=== PATIENT | male | born 1960 | race Caucasian/White ===

== ENCOUNTER → 2016-06-10 | Outpatient (CLI) | payer BC | END | disposition home or self-care (01) | LOC: C.PATH 13:52 | PROVIDERS: ATTEND Dermatology | DX: D23.22 Other benign neoplasm of skin of left ear and external auricular canal (principal); L82.1 Other seborrheic keratosis ==

== ENCOUNTER → 2017-06-19 | Outpatient (CLI) | payer BC ==
[2017-06-19 10:49] LABS: BASO % 0.7 %; BASO ABS # 0.04 K/uL (0-0.2); EOS % 2.8 %; EOS ABS # 0.16 K/uL (0-0.5); HEMATOCRIT 44.7 % (42-52); HEMOGLOBIN 15.7 g/dL (14.0-18.0); IG# 0.03 K/uL (0.00-0.02); LYMPH % 32.7 %; LYMPH ABS # 1.84 K/uL (1.2-3.4); MEAN CELL VOLUME 90.9 fL (80-100); MEAN CORPUSCULAR HEMOGLOBIN 31.9 pg (25-34); MEAN CORPUSCULAR HGB CONC 35.1 g/dl (32-36); MEAN PLATELET VOLUME 10.1 fL (7.4-10.4); MONO % 9.6 %; MONO ABS # 0.54 K/uL (0.11-0.59); NEUT % 53.7 %; NEUT ABS # 3.01 K/uL (1.4-6.5); PLATELET COUNT 211 K/uL (130-400); RED CELL DISTRIBUTION WIDTH CV 12.8 % (11.5-14.5); RED CELL DISTRIBUTION WIDTH SD 42.5 fL (36.4-46.3); WHITE BLOOD COUNT 5.62 K/uL (4.8-10.8)
[2017-06-19 11:18] LABS: ALBUMIN 4.2 gm/dl (3.4-5.0); ALT/SGPT 43 U/L (12-78); AST/SGOT 24 U/L (15-37); BLOOD UREA NITROGEN 23 mg/dl (7-18); CARBON DIOXIDE 25 mmol/L (21-32); GLUCOSE 95 mg/dl (70-99); SODIUM 140 mmol/L (136-145)
[2017-06-19 11:28] LABS: ALKALINE PHOSPHATASE 81 U/L (45-117); CHOLESTEROL 201 mg/dl (0-200); LDL CHOLESTEROL CALCULATED 129 mg/dl; TOTAL PROTEIN 7.9 gm/dl (6.4-8.2)
== END | disposition home or self-care (01) ==
LOC: C.LAB1850 08:33
PROVIDERS: ATTEND Family Medicine
DX: E78.5 Hyperlipidemia, unspecified (principal); M54.5 Low back pain; Z12.5 Encounter for screening for malignant neoplasm of prostate

== ENCOUNTER → 2017-07-27 | Outpatient (CLI) | payer BC ==
--- NOTE | 2017-07-27 12:45 | DIAGNOSTIC IMAGING REPORT ---
ULTRASOUND RIGHT GROIN NONVASCULAR CLINICAL HISTORY: Right groin pain. Lifting injury. COMPARISON STUDY: No priors. FINDINGS: Real-time grayscale sonography of the right groin is performed to assess for inguinal hernia. There is a small and partially reducible fat-containing right inguinal hernia identified. The hernia orifice measures up to 1.7 cm. There is no evidence of bowel or fluid within the hernia sac. No right inguinal adenopathy is seen. IMPRESSION: There is a small and partially visible fat-containing right inguinal hernia. Electronically signed by: Santiago Bustamante M.D. 07/27/2017 12:44 PM Dictated Date/Time: 07/27/2017 12:43 PM
== END | disposition home or self-care (01) ==
LOC: C.ULTR 12:09
PROVIDERS: ATTEND Physician Assistant
DX: K40.90 Unilateral inguinal hernia, without obstruction or gangrene, not specified as recurrent (principal)

== ENCOUNTER 2020-02-29 08:00 | Observation (INO) ==
--- NOTE | 2020-02-06 15:17 | Anesthesiology Consultation ---
Date of Service February 06, 2020 Assessment & Plan (1) Encounter for pre-operative examination: Chart Review Chart Review: Acceptable Risk for Surgery (pending surgeon ordered PCP clearance ) and Patient seen in Pre Admission Testing Awaiting surgeon ordered PCP clearance (pt scheduling) Per PAT on 02/05/20, pt denies any recent travel. Pt and pt's tested Covid tested 12/30/19. Did not get retested. No known Covid positive contacts or Covid related symptoms. 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 Scheduled for preop testing 02/19/20. Educated on importance of self quarantining, social distancing and wearing mask in public both for the patient and household contacts. Teaching & Discussion Pre-Anesthesia Teaching/Discussion Notes: Instructed NPO after midnight before surgery,except medications with 15 cc of water. Medication instructions provided according to the PAT guidelines. History Surgery Operation Date: 02/29/20 11:05 Proposed Procedures p Right Total Hip Arthroplasty - Tamir Hartmann MD Height/Weight Height: 6 ft Weight: 91.9 kg Allergies Allergy/AdvReac Type Severity Reaction Status Date / Time No Known Drug Allergies Allergy Unknown Verified 02/05/20 11:50 Medications Home Medications Medication Instructions Recorded Confirmed Last Taken naproxen sodium [Aleve] 220 mg PO BID PRN 04/08/18 02/05/20 04/16/18 08:00 acetaminophen 650 mg 650 mg PO Q12H PRN 11/02/18 02/05/20 Unknown tablet,extended release multivitamin 1 tab PO QAM 12/19/19 02/05/20 Unknown Past Medical History Medical History Herniated disc History of at L3-L4 = s/p surgery Osteoarthritis Exercise / Class Metabolic Activity II 4-5 Yardwork/Stairs/Walk up hill (ONE FLIGHT OF STAIRS - NO CHEST PAIN OR SOB ) Past Family History Family History Father Family history of diabetes mellitus Dyslipidemia Coronary heart disease Hypertension Pacemaker Past Surgical History Surgical History History of arthroscopy LEFT KNEE (HARDWARE INTACT)-ACL RECONSTRUCTION History of colonoscopy History of discectomy LUMBAR History of herniorrhaphy INGUINAL Past Anesthesia History No Hx of Anesthesia Complications (with exception to slow to wake- just groggy- no hx of reintubation or ICU stay ) and No Family Hx of Anesthesia Complications History of PONV No Hx of PONV and No Hx of Motion Sickness Social History Smoking Status: Never smoker Hx Alcohol Use: Yes Alcohol type: beer alcohol intake frequency: a few times a month Hx Substance Use: No substance use type: does not use Review of Systems Occ snoring- no witnessed apnea. No hx of sleep study Patient denies chest pain, shortness of breath, dyspnea on exertion, reflux, cough, wheezing, palpitations. No hx of seizures, stroke, [place]. No hx of blood clots or blood transfusions Physical Exam Vital Signs VITALS BP 136/87 P 65 TEMP 98.4 SP02 97% RESP 16 Constitutional no acute distress ENMT Mouth: no TMJ clicking Thyromental Distance: > or= 3.5 Finger Breadths (3.5) Mallampati Class: III Mouth / Teeth: 1. Chippped Neck neck extension not limited Respiratory normal respiratory effort; no respiratory distress Auscultation: lungs clear to auscultation bilaterally; no wheezes Cardiovascular Rate/Rhythm: regular rate and regular rhythm Heart Sounds: no murmur Vessels: no carotid bruit Musculoskeletal Spine: + pain with cervical ROM (mild ) Extremities: extremities normal to inspection Psychiatric Orientation: alert Testing Laboratory Results 02/06/20 15:44 02/06/20 15:41 PT 10.5 Seconds (9.0-12.0) 02/06/20 15:44 INR 1.0 (0.9-1.1) 02/06/20 15:44 APTT 29.9 Seconds (21.0-31.0) 02/06/20 15:44 Hemoglobin A1c 5.6 % (4.5-5.6) 02/06/20 15:44 Urine Color Yellow 02/06/20 15:44 Urine Appearance Clear (Clear) 02/06/20 15:44 Urine pH 5.0 (4.5-7.5) 02/06/20 15:44 Ur Specific [place] 1.017 (1.000-1.030) 02/06/20 15:44 Urine Protein Negative (Negative) 02/06/20 15:44 Urine Glucose (UA) Negative (Negative) 02/06/20 15:44 Urine Ketones Negative (Negative) 02/06/20 15:44 Urine Nitrite Negative (Negative) 02/06/20 15:44 Ur Leukocyte Esterase Negative (Negative) 02/06/20 15:44 Blood Type A Positive 02/06/20 15:44 Antibody Screen NEGATIVE 02/06/20 15:44 02/06/20 15:44 Urine Culture - Preliminary Urine,Clean Catch No growth - Less than 1,000 colonies/mL, Final report to follow. Electrocardiogram Date: 02/06/20 Findings: + NSR @ (60) Normal EKG. Compared to EKG from September 28, 2017, nonspecific T wave abnormality has replaced inverted T waves in inferior leads per cardio. Chest X-Ray Date: 02/06/20 Findings: + NAD
--- NOTE | 2020-02-06 16:02 | XRay Report ---
XR chest 2V PA/lateral HISTORY: 59 years-old Male Preop preoperative exam. No acute chest complaints COMPARISON: None TECHNIQUE: PA and lateral views of the chest FINDINGS: Cardiomediastinal and hilar silhouettes are within normal limits. No pneumothorax, pleural effusion, airspace consolidation or overt pulmonary edema. Bones of the chest appear grossly intact. IMPRESSION: No acute process. ACT 112: Negative or not required by law. The above report was generated using voice recognition software. It may contain grammatical, syntax o r spelling errors. Electronically signed by: Solitario Hernandez M.D. 02/06/2020 4:00 PM
[2020-02-06 16:34] LABS: Basophils # (auto) 0.02 K/uL (0-0.2); Basophils % (auto) 0.3 %; Eosinophils # (auto) 0.12 K/uL (0-0.5); Eosinophils % (auto) 1.9 %; Hematocrit (blood only) 43.1 % (42-52); Hemoglobin 14.4 g/dL (14.0-18.0); Immature Granulocytes # (auto) 0.03 K/uL (0.00-0.02); Immature Granulocytes % (auto) 0.5 %; Lymphocytes # (auto) 1.92 K/uL (1.2-3.4); Mean Corpuscular Hemoglobin 31.5 pg (25-34); Mean Corpuscular Hgb Conc 33.4 g/dL (32-36); Mean Corpuscular Volume 94.3 fL (80-100); Mean Platelet Volume 10.3 fL (7.4-10.4); Monocytes % (auto) 6.5 %; Neutrophils # (auto) 3.71 K/uL (1.4-6.5); Neutrophils % (auto) 59.8 %; Platelet Count 233 K/uL (130-400); RDW Coefficient of Variation 12.7 % (11.5-14.5); RDW Standard Deviation 43.4 fL (36.4-46.3); Red Blood Count 4.57 M/uL (4.7-6.1)
[2020-02-06 16:39] LABS: Appearance Urine Clear (Clear); Bilirubin Urine Negative (Negative); Blood Urine Negative (Negative); Color Urine Yellow; Glucose Urine UA Negative (Negative); Ketones Urine Negative (Negative); Leukocyte Esterase Urine Negative (Negative); Nitrite Urine Negative (Negative); Protein Urine Negative (Negative); Specific Gravity Urine 1.017 (1.000-1.030); Urobilinogen Urine Negative (Negative)
[2020-02-06 16:44] LABS: BUN Creatinine Ratio 15.3 (10-20); Calcium 9.1 mg/dl (8.5-10.1); Creatinine Clr Calc Pharmacy 82.1 ml/min; Est GFR (African American) 86.9; Est GFR (Non-African American) 74.9; Potassium 4.3 mmol/L (3.5-5.1)
[2020-02-06 16:50] LABS: Partial Thromboplastin Ratio 1.1; Partial Thromboplastin Time 29.9 Seconds (21.0-31.0); Prothrombin Time 10.5 Seconds (9.0-12.0)
[2020-02-07 05:49] LABS: Estimated Average Glucose 114 mg/dl; Hemoglobin A1C 5.6 % (4.5-5.6)
--- NOTE | 2020-02-07 08:45 | History & Physical Report ---
Date of Service February 07, 2020 Assessment & Plan Admission and Anticipated Discharge Date Admission Date: PRE-OP Diagnosis: Right hip osteoarthritis Planned Procedure: Right total hip arthroplasty Plan: Patient is scheduled to undergo this procedure with Dr. Tamir Hartmann at the [facility] on February 29, 2020. Risks and complications of the procedure such as: Infection, bleeding, pain, scarring, nerve blood vessel damage, weakness, wound problems, stiffness, incomplete relief of symptoms, hardware failure, hardware loosening, wear, fracture, tendon or ligament injury, dislocation, leg length inequality, blood clots, embolism, hea rt attack, stroke and were explained to the patient at his visit today by Dr. Hartmann. Informed consent form the procedure was obtained. Patient also understands risks of proceeding with surgical intervention during the COVID-19 pandemic. Currently he is asymptomatic and will be tested no more than 7 days prior to the procedure. I discussed the abscessed area with Dr. Hartmann during today's visit and he recommended that we place the patient on Bactrim for 14 days, and feel that he should see Dr. Sidhu his spine surgeon as well as his primary care provider Dr. Salvador for preoperative medical clearance. Clearance forms will be sent to each of their offices, and patient will contact both of them to set up an appointment. Patient is scheduled to meet with anesthesia later this afternoon, and while there he will obtain a CBC with differential, complete metabolic panel, PT/INR, blood type and screen, urinalysis, urine culture and sensitivity, EKG, hemoglobin A1c and a nasal culture for MRSA. During today's visit we discussed total hip precautions, we reviewed the total hip packet, we talked about antibiotic use for dental procedures following joint replacement surgery, reviewed discharge planning and we talked about lectures offered by [facility] in regards to joint replacement surgery that are offered via Zoom. I also instructed patient to purchase some raised toilet seats, a hip kit and a walker. Patient states that his friend recently underwent total joint surgery and is going to provide him with all of these things. He states that he will bring the walker with him on the day of surgery. I advised the patient that he will be discharged from the hospital with a prescription for some pain medication, and anti-inflammatory, and that I would like him to purchase extra strength Tylenol and baby aspirin to use for pain control and DVT prophylaxis respectively. He states that he will most likely opt to do in-home therapy for the first 2 weeks postoperatively, and at the 2-week postoperative follow-up visit we will provide him with an order to obtain outpatient physical therapy. Patient states he would like to come to our clinic for that. Due to the abscessed area on his spine I would like to see the patient back 1 week prior to surgery. I advised him that his 2-week postoperative follow-up visit was also with myself on March 15 at 1:30 in the afternoon. Patient verbalized understanding of all information provided during today's visit. He thanked us for the care that he received. Patient states if he has questions or concerns that should arise prior to his surgery, he will contact clinic. History of Present Illness Chief Complaint: Chief Complaint: Right hip pain Primary Care Provider: Dusty Salvador MD History of Present Illness (including history relevant to procedure): This 59-year-old male presents the clinic today for his preoperative history and physical examination. The patient has had issues with his right leg for over 3 years. He underwent back surgery 3 years ago, which helped with some of the excruciating pains he had radiating down his leg. He has been left with some numbness in the anterolateral aspect of the lower leg. However, he has always had some pain in the groin which has progressively worsened over the last 3 years. This affects his ability to lift heavy objects, walk and even kayak. He has tried various treatments including a 1-week course of steroids orally as well as Aleve and Tylenol. Unfortunately, these have failed to relieve his symptoms. He has not had any injections into the hip joint. He says nothing really makes it any better. He denies any current tingling down the leg and does not have any numbness by his groin, only in the lower leg. Past Medical History: Problems: Abscess of back Chronic numbness in the right anterior lower leg since having back surgery Right hip degenerative joint disease Procedure History Procedure Procedure Date Comments L4/5 discectomy Left ACL and MCL reconstruction Left inguinal hernia repair Allergies and Sensitivities: NKA Social history: Patient states that he consumes approximately 2 alcoholic beverages per week. He denies tobacco or illicit drug use. Family history: Noncontributory Current Home Meds: (Last Updated 11/10 14:49) (Tylenol) glucosamine multivitamintrimethoprim (Bactrim DS 800 mg-160 mg oral tablet) 1 tab PO bid drink plenty of fluids Allergies Allergy/AdvReac Type Severity Reaction Status Date / Time No Known Drug Allergies Allergy Unknown Verified 02/05/20 11:50 Home Medications Home Medications Medication Instructions Recorded Confirmed Type naproxen sodium [Aleve] 220 mg PO BID PRN 04/08/18 02/05/20 History acetaminophen 650 mg 650 mg PO Q12H PRN 11/02/18 02/05/20 History tablet,extended release multivitamin 1 tab PO QAM 12/19/19 02/05/20 History Past Med/Surg History Medical History Herniated disc History of at L3-L4 = s/p surgery Osteoarthritis Surgical History History of arthroscopy LEFT KNEE (HARDWARE INTACT)-ACL RECONSTRUCTION History of colonoscopy History of discectomy LUMBAR History of herniorrhaphy INGUINAL Family History Father Family history of diabetes mellitus Dyslipidemia Coronary heart disease Hypertension Pacemaker Social History Smoking Status: Never smoker Second Hand Exposure: No; Tobacco Cessation Education Requested by Patient: No Hx Alcohol Use: Yes Alcohol type: beer Hx Substance Use: No Preferred Language: Malawian Communication Ability: Effective Paper Bag Inspector Required: No Beliefs That Will Affect Care: None marital status: Current Living Situation: Spouse current occupational status: employed Feels Safe at Home: Yes Safety Concerns: Feels Safe At This Time Physical Activity Frequency: Daily Seatbelt Use: always Assistive Devices: None Review of Systems All systems reviewed & are unremarkable except as noted in HPI & below Musculoskeletal: severe right hip pain with limited range of motion and difficulty ambulating Immunologic Skin: Open lesion in lumbar spine area in the center of his previous surgical scar from a discectomy Neurologic Physical Exam Physical Exam: Physical Exam: (relevant to the procedure, including heart and lung evaluation) General: Alert and oriented x3 with proper grooming and hygiene Eyes: Pupils are equal and react to light with accommodation. Extraocular movements are intact Throat: Deferred due to COVID-19 precautions Cardiac: Regular rate and rhythm with no murmurs or gallops appreciated Lungs: Clear to auscultation throughout with no wheezing, rales or rhonchi Abdomen: Mildly obese, nondistended, nontender with normal active bowel sounds Back: See skin Extremities: Right hip exam reveals the patient to have a positive Stinchfield test. He has severely limited range of motion with flexion up to 85 degrees, external rotation of 30 degrees, and internal rotation of 5 degrees. Positive impingement-scour tests. Positive CHOCO test. Distally neurovascularly intact including palpable dorsalis pedis and posterior tibial pulses. Neuro: Cranial nerves II through XII are intact with no motor or sensory deficit Skin: Patient has a tiny opening in the central portion of the scar in his lumbar spine with some mild surrounding erythema. Upon compression of the area a thick yellowish substance was expressed. Site was then cleansed with Betadine swabs, and alcohol soaked 4 x 4 and covered with some Band-Aids. Otherwise the skin was normal in appearance. Results & Data ([facility]) Laboratory Results 02/06/20 02/06/20 02/06/20 Range/Units 15:44 15:44 15:44 WBC (4.8-10.8) K/uL RBC (4.7-6.1) M/uL Hgb (14.0-18.0) g/dL Hct (42-52) % MCV (80-100) fL MCH (25-34) pg MCHC (32-36) g/dL RDW Std Deviation (36.4-46.3) fL RDW Coeff of Ronna (11.5-14.5) % Plt Count (130-400) K/uL MPV (7.4-10.4) fL Immature Gran % (Auto) % Neut % (Auto) % Lymph % (Auto) % [place] % (Auto) % Eos % (Auto) % Baso % (Auto) % Neut # (Auto) (1.4-6.5) K/uL Lymph # (Auto) (1.2-3.4) K/uL [place] # (Auto) (0.11-0.59) K/uL Eos # (Auto) (0-0.5) K/uL Baso # (Auto) (0-0.2) K/uL Immature Gran # (Auto) (0.00-0.02) K/uL PT (9.0-12.0) Seconds INR (0.9-1.1) APTT (21.0-31.0) Seconds PTT Ratio Sodium (136-145) mmol/L Potassium (3.5-5.1) mmol/L Chloride (98-107) mmol/L Carbon Dioxide (21-32) mmol/L Anion Gap (3-11) BUN (7-18) mg/dl Creatinine (0.6-1.4) mg/dl Est Cr Clr Drug Dosing ml/min Est GFR ( Amer) Est GFR (Non-Af Amer) BUN/Creatinine Ratio (10-20) Glucose (70-99) mg/dl Estimat Average Glucose 114 mg/dl Hemoglobin A1c 5.6 (4.5-5.6) % Calcium (8.5-10.1) mg/dl Urine Color Yellow Urine Appearance Clear (Clear) Urine pH 5.0 (4.5-7.5) Ur Specific [place] 1.017 (1.000-1.030) Urine Protein Negative (Negative) Urine Glucose (UA) Negative (Negative) Urine Ketones Negative (Negative) Urine Blood Negative (Negative) Urine Nitrite Negative (Negative) Urine Bilirubin Negative (Negative) Urine Urobilinogen Negative (Negative) Ur Leukocyte Esterase Negative (Negative) Nasal Screen MRSA (PCR) Negative (Negative) Blood Type Antibody Screen 02/06/20 02/06/20 02/06/20 Range/Units 15:44 15:44 15:44 WBC 6.20 (4.8-10.8) K/uL RBC 4.57 L (4.7-6.1) M/uL Hgb 14.4 (14.0-18.0) g/dL Hct 43.1 (42-52) % MCV 94.3 (80-100) fL MCH 31.5 (25-34) pg MCHC 33.4 (32-36) g/dL RDW Std Deviation 43.4 (36.4-46.3) fL RDW Coeff of Ronna 12.7 (11.5-14.5) % Plt Count 233 (130-400) K/uL MPV 10.3 (7.4-10.4) fL Immature Gran % (Auto) 0.5 % Neut % (Auto) 59.8 % Lymph % (Auto) 31.0 % [place] % (Auto) 6.5 % Eos % (Auto) 1.9 % Baso % (Auto) 0.3 % Neut # (Auto) 3.71 (1.4-6.5) K/uL Lymph # (Auto) 1.92 (1.2-3.4) K/uL [place] # (Auto) 0.40 (0.11-0.59) K/uL Eos # (Auto) 0.12 (0-0.5) K/uL Baso # (Auto) 0.02 (0-0.2) K/uL Immature Gran # (Auto) 0.03 H (0.00-0.02) K/uL PT 10.5 (9.0-12.0) Seconds INR 1.0 (0.9-1.1) APTT 29.9 (21.0-31.0) Seconds PTT Ratio 1.1 Sodium (136-145) mmol/L Potassium (3.5-5.1) mmol/L Chloride (98-107) mmol/L Carbon Dioxide (21-32) mmol/L Anion Gap (3-11) BUN (7-18) mg/dl Creatinine (0.6-1.4) mg/dl Est Cr Clr Drug Dosing ml/min Est GFR ( Amer) Est GFR (Non-Af Amer) BUN/Creatinine Ratio (10-20) Glucose (70-99) mg/dl Estimat Average Glucose mg/dl Hemoglobin A1c (4.5-5.6) % Calcium (8.5-10.1) mg/dl Urine Color Urine Appearance (Clear) Urine pH (4.5-7.5) Ur Specific [place] (1.000-1.030) Urine Protein (Negative) Urine Glucose (UA) (Negative) Urine Ketones (Negative) Urine Blood (Negative) Urine Nitrite (Negative) Urine Bilirubin (Negative) Urine Urobilinogen (Negative) Ur Leukocyte Esterase (Negative) Nasal Screen MRSA (PCR) (Negative) Blood Type A Positive Antibody Screen NEGATIVE 02/06/20 Range/Units 15:41 WBC (4.8-10.8) K/uL RBC (4.7-6.1) M/uL Hgb (14.0-18.0) g/dL Hct (42-52) % MCV (80-100) fL MCH (25-34) pg MCHC (32-36) g/dL RDW Std Deviation (36.4-46.3) fL RDW Coeff of Ronna (11.5-14.5) % Plt Count (130-400) K/uL MPV (7.4-10.4) fL Immature Gran % (Auto) % Neut % (Auto) % Lymph % (Auto) % [place] % (Auto) % Eos % (Auto) % Baso % (Auto) % Neut # (Auto) (1.4-6.5) K/uL Lymph # (Auto) (1.2-3.4) K/uL [place] # (Auto) (0.11-0.59) K/uL Eos # (Auto) (0-0.5) K/uL Baso # (Auto) (0-0.2) K/uL Immature Gran # (Auto) (0.00-0.02) K/uL PT (9.0-12.0) Seconds INR (0.9-1.1) APTT (21.0-31.0) Seconds PTT Ratio Sodium 140 (136-145) mmol/L Potassium 4.3 (3.5-5.1) mmol/L Chloride 107 (98-107) mmol/L Carbon Dioxide 29 (21-32) mmol/L Anion Gap 4.0 (3-11) BUN 17 (7-18) mg/dl Creatinine 1.09 (0.6-1.4) mg/dl Est Cr Clr Drug Dosing 82.1 ml/min Est GFR ( Amer) 86.9 Est GFR (Non-Af Amer) 74.9 BUN/Creatinine Ratio 15.3 (10-20) Glucose 108 H (70-99) mg/dl Estimat Average Glucose mg/dl Hemoglobin A1c (4.5-5.6) % Calcium 9.1 (8.5-10.1) mg/dl Urine Color Urine Appearance (Clear) Urine pH (4.5-7.5) Ur Specific [place] (1.000-1.030) Urine Protein (Negative) Urine Glucose (UA) (Negative) Urine Ketones (Negative) Urine Blood (Negative) Urine Nitrite (Negative) Urine Bilirubin (Negative) Urine Urobilinogen (Negative) Ur Leukocyte Esterase (Negative) Nasal Screen MRSA (PCR) (Negative) Blood Type Antibody Screen Diagnostic Findings Studies (relevant to the procedure): X-rays done today include 5 x-rays of the right hip. These demonstrate severe osteoarthritis in the right hip with complete joint space loss on the superior aspect of the joint with adjacent subchondral sclerosis and cysts on both sides of the joint, acetabulum, and femoral head. He has a notable pistol oncology social work deformity of the femoral head as well. Fortunately, the left hip is intact.
--- NOTE | 2020-02-07 15:53 | Electrocardiogram Report ---
Test Reason : Blood Pressure : / mmHG Vent. Rate : 060 BPM Atrial Rate : 060 BPM P-R Int : 154 ms QRS Dur : 088 ms QT Int : 404 ms P-R-T Axes : 033 025 059 degrees QTc Int : 404 ms Normal sinus rhythm Normal ECG When compared with ECG of 28-SEP-2017 11:41, Nonspecific T wave abnormality has replaced inverted T waves in Inferior leads Confirmed by Rex Myers ([id number]) on 02/07/2020 3:53:25 PM Referred By: Tamir Hartmann Confirmed By:Rex Myers
[~2020-02-29 08:00] MED LIST: ACETAMINOPHEN 500 MG TAB PO SCH; BUPIVACAINE 0.5 % 5 MG/1 ML PF 10ML VIAL ONE; CeleBREX 200 MG CAP PO SCH; FAMOTIDINE 20 MG TAB PO SCH; LR 500ML BOLUS, THEN 15ML/HR IV SCH; LR 60ML/HR IV SCH; METOCLOPRAMIDE HCL 10 MG TABLET PO SCH; ROPIVACAINE 0.5% HCL/PF 150 MG, BUPIVACAINE 0.5% MPF 30 ML, EPINEPHrine 0.15 MG, Ketoro... INFIL SCH; TRANEXAMIC ACID 1,000 MG **IV Intra-op IV SCH; TRANEXAMIC ACID 1,000 MG **IV Pre-op IV SCH; ceFAZolin 2000MG 2,000 MG/15 ML SYR IV SCH; dexAMETHasone 4 MG TAB PO SCH; traMADol HCL 50 MG TABLET PO SCH
[2020-02-29] MEDS ORDERED: MIDAZOLAM HCL 1 MG/ML 2ML VIAL ONE (08:34)
[2020-02-29] MEDS ORDERED: PROPOFOL IV EMULSION 10 MG/ML 20 ML VIAL IV ONE (08:34)
[2020-02-29] MEDS ORDERED: LIDOCAINE HCL 2% 2 ML VIAL/AMP(20MG/ML) INFIL ONE (08:34)
[2020-02-29] MEDS ORDERED: fentaNYL citrate 100 MCG/2 ML VIAL ONE (08:34)
[2020-02-29] MEDS ORDERED: ATROPINE SULFATE 0.1 MG/ML 10ML SYR IV PRN (08:45)
[2020-02-29] MEDS ORDERED: ePHEDrine sulfate 50 MG/ML AMP IV PRN (08:45)
[2020-02-29] MEDS ORDERED: ONDANSETRON INJ 2 MG/ML 2 ML VIAL IV PRN ×2 (08:45→12:59)
[2020-02-29] MEDS ORDERED: fentaNYL citrate 100 MCG/2 ML VIAL IV PRN (08:45)
[2020-02-29] MEDS ORDERED: HYDROmorphone INJ 1 MG/ML SYRINGE IV PRN (08:45)
--- NOTE | 2020-02-29 10:25 | History & Physical Bridge Note ---
Date of Service February 29, 2020 History & Physical Bridge Note I have examined the patient, reviewed the History & Physical and in the interval since the performance of the History & Physical I have noted the following changes of clinical significance: no changes noted
[2020-02-29] MEDS ORDERED: ORTHO JOINT ANESTHETIC ONE (10:36)
[2020-02-29] MEDS ORDERED: KETAMINE 50 MG/5 ML SYRINGE ONE (11:18)
--- NOTE | 2020-02-29 12:47 | Operative Report ---
Post Operative Report Pre & Post Diagnosis Operation Date: 02/29/20 10:10 Pre-Op Diagnosis: Right Hip Osteoarthritis Post-Op Diagnosis: Right Hip Osteoarthritis I identified the patient and participated in the time-out.: Yes Procedure Operation Date: 02/29/20 10:10 Actual Procedures p Right Total Hip Arthroplasty(Right) - Tamir Hartmann MD Surgeon Tamir Hartmann MD Moving Consultant Chikis Restrepo MD and CHRIS Uriostegui PA-C Estimated Blood Loss 100 Findings Consistent with Post-Op Diagnosis Specimens Femoral head Anesthesia Type Spinal MAC Complications none Disposition Accompanied Patient To Recovery: No Disposition: Recovery Room Indications 59-year-old male with right hip pain refractory to conservative management. X- rays demonstrate [id number] osteoarthritis. I had a long discussion with him about the risks and benefits of surgical, alternatives to surgery, and expected outcomes. Patient elected to proceed. All questions were answered. Informed sent was signed. Description of Procedure Patient was identified in the preoperative holding area and the surgical site, right hip, was marked. A spinal anesthetic was placed, then the patient was brought back to the main operating room, placed in the operating table and moved into the lateral decubitus position. Axillary roll was placed. All bony prominences were padded. Perioperative antibiotics and tranexamic acid 1 gram IV were administered. Operative extremity was prepped and draped in the normal sterile fashion. Prior to incision a multidisciplinary timeout was called. All in the room were in agreement. We began by making an incision for a posterior approach to the hip. We dissected down through subcutaneous tissues to the level of the fascia. The fascia was incised in line with the incision. Charnley bow was placed. The trochanteric bursa was excised. The piriformis and short external rotators were dissected off the posterior aspect of the hip. A box cut was made in the capsule. The femoral head was dislocated. The femoral neck cut was made at our preoperative template. The acetabulum was then exposed. The labrum was sharply excised. Contents of the cotyloid fossa were removed with electrocautery. We then began reaming at a size 8 mm less than our preoperative template. We reamed up by 1 [address] the way up to a size 60 mm cup. This gave us good bleeding cancellus bone circumferentially. The acetabulum was then irrigated out and dried. The real [place] Gription cup was then impacted down into position with 45 degrees of lateral opening and 25 degrees of anteversion. A single cancellous bone screw was placed up into the ilium. Excellent fixation was obtained. An Altrx polyethylene liner for a 36 mm femoral head was then impacted into the shell. The locking mechanism was checked to ensure that it had engaged which it had. Next we turned our attention to the femur. The lateral neck was removed with a box osteotome. Intramedullary guide was used followed by the lateralizing reamer. We then reamed up to a size 6 [place] stem. We then broached all the way up to a size 6. We began trialing with a high offset neck and a +8.5 head. Hip was reduced. Leg lengths were symmetric. The hip was stable in extension and external rotation, and stable in the sleeper position. At 90 degrees of hip flexion the hip could be internally rotated 55 degrees before levering out of the cup. I was very happy with the stability exam. Therefore the hip was dislocated and the femoral trial was removed. The femoral canal was irrigated and dried. The real size 6 high offset [place] femoral stem was opened up. This was impacted down into position. It sat at the same level as the femoral trial. Therefore the 36 mm ceramic femoral head with a +8.5 mm offset was opened up and gently impacted down onto the trunnion. The hip was atraumatically reduced. Another 1 gram of IV tranexamic acid was started prior to closure. The wound was irrigated out with sterile Betadine solution. The periarticular injection cocktail was then placed. The short external rotators, piriformis, and posterior capsule were repaired through drill holes in the greater trochanter using #2 Vicryl. The fascia was run with a looped #1 PDS. The subcutaneous layer was closed with #1 PDS. The dermal layer was closed with 2-0 Vicryl. Zip line was used for the skin followed by a Silverlon dressing. A compressive dressing was then placed. The patient was then rolled supine. Leg lengths were rechecked and were symmetric. An abduction pillow was placed. Sedation was lifted and the patient was transferred to recovery room in stable condition. Summary of implants: Depuy [place] Gription Acetabular Shell Sector Cup, 60 mm outer diameter [place] Cancellous bone screw, 6.5 x 30 mm [place] Altrx Polyethylene Acetabular Liner, Neutral, with a 36 mm inner diameter DePuy [place] Femoral stem with [place], 12/14 taper, size 6 high 36 mm ceramic femoral head with +8.5 offset Postoperative course: Patient will be admitted to the hospital from the recovery room. Patient will be weightbearing as tolerated with posterior hip preca utions. Aspirin for DVT prophylaxis I attest to the content of the Intraoperative Record and any orders documented therein. Any exceptions are noted below.
--- NOTE | 2020-02-29 12:58 | Operative Report ---
Post Operative Report Pre & Post Diagnosis Operation Date: 02/29/20 10:10 Pre-Op Diagnosis: Right Hip Osteoarthritis Post-Op Diagnosis: Right Hip Osteoarthritis I identified the patient and participated in the time-out.: Yes Procedure Operation Date: 02/29/20 10:10 Actual Procedures p Right Total Hip Arthroplasty(Right) - Tamir Hartmann MD Surgeon Tamir Hartmann MD Cosmetics Counter Manager Chikis Restrepo MD and CHRIS Uriostegui PA-C Estimated Blood Loss 100 Findings Consistent with Post-Op Diagnosis Specimens femoral head Complications none Disposition Accompanied Patient To Recovery: Yes Disposition: Recovery Room Description of Procedure I was present during the entire procedure assisting with positioning, prepping, draping, wound retraction, wound closure, dressing and abduction pillow placement. Fellow also present. I served as an extra set of hands. Please see Dr. Hartmann procedure note for specifics of the case. I attest to the content of the Intraoperative Record and any orders documented therein. Any exceptions are noted below.
[2020-02-29] MEDS ORDERED: NALOXONE HCL 0.4 MG/1 ML VIAL/CARP IV PRN (12:59)
[2020-02-29] MEDS ORDERED: ALUMINUM/MAGNESIUM SUSP 30 ML UDC PO PRN (12:59)
[2020-02-29] MEDS ORDERED: oxyCODONE HCL IR 5 MG TAB (IMMEDIATE RELEASE) PO PRN (12:59)
[2020-02-29] MEDS ORDERED: MAGNESIUM HYDROXIDE SUSP 30 ML UDC PO PRN (12:59)
[2020-02-29] MEDS ORDERED: TAMSULOSIN HCL 0.4 MG CAP PO PRN (12:59)
[2020-02-29] MEDS ORDERED: METOCLOPRAMIDE HCL INJ 5 MG/ML 2 ML VIAL IV PRN (12:59)
[2020-02-29] MEDS ORDERED: HYDROmorphone INJ 0.5 MG/0.5 ML SYR IV PRN (12:59)
[2020-02-29] MEDS ORDERED: bisacodyL 10 MG SUPP PR PRN (12:59)
[2020-02-29] MEDS ORDERED: diphenhydrAMINE 50 MG/ML VIAL IV PRN (12:59)
[2020-02-29] MEDS ORDERED: traMADol HCL 50 MG TABLET PO PRN (13:04)
--- NOTE | 2020-02-29 13:27 | XRay Report ---
XR pelvis 1-2V routine HISTORY: 59 years-old Male Post Surgical right hip total joint arthroplasty COMPARISON: Pelvis radiograph 02/06/2020 TECHNIQUE: AP view of the pelvis FINDINGS: Right hip total joint arthroplasty. Expected postsurgical soft tissue swelling and deep tissue air modi rrounds the right hip. No acute fracture, dislocation or unexpected opaque foreign body. Moderate lef t hip osteoarthritis. Calcifications are again noted projected over the upper scrotum. IMPRESSION: Right hip total joint arthroplasty with expected postoperative changes. ACT 112: Negative or not required by law. The above report was generated using voice recognition software. It may contain grammatical, syntax o r spelling errors. Electronically signed by: Solitario Hernandez M.D. 02/29/2020 1:25 PM
--- NOTE | 2020-02-29 13:40 | Anesthesiology Progress Note ---
Date of Service February 29, 2020 Anesthesia Post Procedure Vital Signs Vital Signs: Temp Pulse Pulse Resp BP Pulse Ox 02/29/20 13:25 36.5 C 56 L 13 107/67 93 02/29/20 13:15 56 L 16 103/68 97 02/29/20 13:05 54 L 15 105/60 98 02/29/20 12:56 36.4 C L 61 17 101/65 97 02/29/20 08:57 36.6 C 84 20 137/91 97 Transfer of Care Handoff Completed per policy Notes Mental Status: alert / awake / arousable and participated in evaluation Patient Amnestic to Procedure: Yes Nausea / Vomiting: adequately controlled Pain: adequately controlled Airway Patency, RR, SpO2: stable & adequate BP & HR: stable & adequate Hydration State: stable & adequate Neuraxial Anesthesia: was administered and sensory block is resolving Anesthetic Complications: no major complications apparent and Pt Satisfied with anesthetic care
[2020-02-29] MEDS: SODIUM CHLORIDE 0.9% 1000ML 1,000 ML IV SCH (14:10)
[2020-02-29] MEDS: Scopolamine CHECK PATCH PLACEMENT SCH (16:07)
[2020-02-29] MEDS: ceFAZolin 2000MG 2,000 MG/15 ML SYR IV SCH (17:42)
[2020-02-29] MEDS: KETOROLAC TROMETHAMINE 15 MG/ML VIAL IV SCH (17:43)
[2020-02-29] MEDS ORDERED: TRANEXAMIC ACID / 0.7% NACL 1,000 MG/100 ML BAG IV SCH (19:00)
[2020-02-29] MEDS: ASPIRIN 81 MG ECTAB PO SCH (20:22)
[2020-02-29] MEDS: DOCUSATE SODIUM 100 MG CAP PO SCH (20:22)
[2020-02-29] MEDS ORDERED: SENNA 8.6 MG TAB PO SCH (21:00)
[2020-02-29] MEDS: ACETAMINOPHEN 500 MG TAB PO SCH (21:34)
[2020-03-01] MEDS: SODIUM CHLORIDE 0.9% 1000ML 1,000 ML IV SCH (00:05)
[2020-03-01] MEDS: KETOROLAC TROMETHAMINE 15 MG/ML VIAL IV SCH ×2 (00:06→05:58)
[2020-03-01] MEDS: Scopolamine CHECK PATCH PLACEMENT SCH ×2 (00:07→08:11)
[2020-03-01] MEDS: ceFAZolin 2000MG 2,000 MG/15 ML SYR IV SCH (03:04)
[2020-03-01] MEDS: ACETAMINOPHEN 500 MG TAB PO SCH (05:55)
[2020-03-01 06:11] LABS: Hematocrit (blood only) 33.2 % (42-52); Hemoglobin 11.4 g/dL (14.0-18.0); Immature Granulocytes # (auto) 0.09 K/uL (0.00-0.02); Immature Granulocytes % (auto) 0.6 %; Lymphocytes # (auto) 0.82 K/uL (1.2-3.4); Lymphocytes % (auto) 5.1 %; Mean Corpuscular Hemoglobin 31.9 pg (25-34); Mean Corpuscular Hgb Conc 34.3 g/dL (32-36); Mean Platelet Volume 9.5 fL (7.4-10.4); Monocytes # (auto) 1.12 K/uL (0.11-0.59); Neutrophils # (auto) 14.01 K/uL (1.4-6.5); Neutrophils % (auto) 87.3 %; Platelet Count 337 K/uL (130-400); RDW Coefficient of Variation 13.1 % (11.5-14.5); RDW Standard Deviation 44.5 fL (36.4-46.3); Red Blood Count 3.57 M/uL (4.7-6.1); White Blood Count 16.04 K/uL (4.8-10.8)
[2020-03-01 06:38] LABS: BUN Creatinine Ratio 17.7 (10-20); Calcium 8.2 mg/dl (8.5-10.1); Creatinine Clr Calc Pharmacy 77.8 ml/min; Est GFR (African American) 81.4; Est GFR (Non-African American) 70.3; Potassium 4.2 mmol/L (3.5-5.1)
[2020-03-01] MEDS ORDERED: dexAMETHasone 4 MG TAB PO SCH (08:00)
[2020-03-01] MEDS: ASPIRIN 81 MG ECTAB PO SCH (08:10)
[2020-03-01] MEDS: DOCUSATE SODIUM 100 MG CAP PO SCH (08:11)
[2020-03-01] MEDS ORDERED: MULTIVITAMIN TAB PO SCH ×2 (09:00)
--- NOTE | 2020-03-01 09:08 | Anesthesiology Progress Note ---
Date of Service March 01, 2020 Anesthesia Post Procedure Vital Signs Vital Signs: Temp Pulse Pulse Resp BP BP Pulse Ox 03/01/20 07:21 36.9 C 58 L 18 119/67 96 03/01/20 03:20 37 C 64 16 127/71 95 02/29/20 23:29 36.6 C 57 L 16 105/65 98 02/29/20 23:22 36.7 C 85 18 155/81 H 91 02/29/20 19:07 36.5 C 54 L 16 118/79 96 02/29/20 17:51 57 L 94/57 L 97 02/29/20 17:29 36.6 C 60 16 124/73 97 02/29/20 16:08 36.4 C L 67 16 127/75 96 02/29/20 15:09 36.4 C L 59 L 16 129/73 94 02/29/20 14:32 36.7 C 54 L 18 111/67 93 02/29/20 14:03 36.6 C 62 16 122/71 93 02/29/20 13:40 56 L 16 116/66 93 02/29/20 13:25 36.5 C 56 L 13 107/67 93 02/29/20 13:15 56 L 16 103/68 97 02/29/20 13:05 54 L 15 105/60 98 02/29/20 12:56 36.4 C L 61 17 101/65 97 Transfer of Care Handoff Completed per policy Notes Mental Status: alert / awake / arousable Patient Amnestic to Procedure: Yes Nausea / Vomiting: adequately controlled Pain: adequately controlled Airway Patency, RR, SpO2: stable & adequate BP & HR: stable & adequate Hydration State: stable & adequate Neuraxial Anesthesia: was administered and sensory block resolved Anesthetic Complications: no major complications apparent and Pt Satisfied with anesthetic care
--- NOTE | 2020-03-01 10:53 | Orthopedic Progress Note ---
Date of Service March 01, 2020 Assessment & Plan (1) Status post total hip replacement, right: Total hip precautions PT/OT Weightbearing as tolerated with walker assistance Abduction pillow use x6 weeks DVT prophylaxis with EDWIN stockings and aspirin Pain control with p.o. medication Keep Silverlon dressing intact Ice with EZ wrap Discharge home today with in-home physical therapy Follow-up at [facility] orthopedics as scheduled in 2 weeks With questions: Call [phone] Admission and Anticipated Discharge Date Admission Date: February 29, 2020 Subjective This 59-year-old male is day 1 status post right total hip arthroplasty. Currently sitting in his bedside chair eating breakfast. He states he has completed physical therapy and occupational therapy this morning. He has been able to ambulate around the hallway with the assistance of his walker without difficulty. He denies any significant pain and feels that the oral pain medication has been very effective. Patient is dressed and states that he is ready to be discharged home. Patient denies chest pain, shortness of breath, fever, chills, sweats, nausea, vomiting, lethargy, fatigue or numbness or tingling in his right lower extremity. Review of Systems Review of Systems: All systems reviewed & are unremarkable except as noted in Subjective Physical Exam Physical Exam: Right hip: Silverlon dressing was clean dry and intact. Patient was able to depict light sensation to touch circumferentially around the dressing. Logroll test and Stinchfield tests are negative. Patient experiences no pain with very light passive internal and external hip rotation. He is able to actively perform a straight leg raise test without difficulty. He is able to actively dorsi and plantarflex his foot. Quad strength is 3 out of 5. He is neurovascularly intact in right lower extremity. His peripheral pulses are 2+. His capillary refill is less than 2 seconds. Results & Data ([facility]) Vital Signs (Past 12 Hours) Vital Signs Temp Pulse Resp BP BP Pulse Ox 03/01/20 09:23 36.9 C 58 L 18 105/65 119/67 96 03/01/20 07:21 36.9 C 58 L 18 119/67 96 03/01/20 03:20 37 C 64 16 127/71 95 02/29/20 23:29 36.6 C 57 L 16 105/65 98 02/29/20 23:22 36.7 C 85 18 155/81 H 91 Laboratory Results 03/01/20 03/01/20 Range/Units 05:36 05:36 WBC 16.04 H (4.8-10.8) K/uL RBC 3.57 L (4.7-6.1) M/uL Hgb 11.4 L (14.0-18.0) g/dL Hct 33.2 L (42-52) % MCV 93.0 (80-100) fL MCH 31.9 (25-34) pg MCHC 34.3 (32-36) g/dL RDW Std Deviation 44.5 (36.4-46.3) fL RDW Coeff of Ronna 13.1 (11.5-14.5) % Plt Count 337 (130-400) K/uL MPV 9.5 (7.4-10.4) fL Immature Gran % (Auto) 0.6 % Neut % (Auto) 87.3 % Lymph % (Auto) 5.1 % [place] % (Auto) 7.0 % Eos % (Auto) 0.0 % Baso % (Auto) 0.0 % Neut # (Auto) 14.01 H (1.4-6.5) K/uL Lymph # (Auto) 0.82 L (1.2-3.4) K/uL [place] # (Auto) 1.12 H (0.11-0.59) K/uL Eos # (Auto) 0.00 (0-0.5) K/uL Baso # (Auto) 0.00 (0-0.2) K/uL Immature Gran # (Auto) 0.09 H (0.00-0.02) K/uL Sodium 140 (136-145) mmol/L Potassium 4.2 (3.5-5.1) mmol/L Chloride 107 (98-107) mmol/L Carbon Dioxide 26 (21-32) mmol/L Anion Gap 7.0 (3-11) BUN 20 H (7-18) mg/dl Creatinine 1.15 (0.6-1.4) mg/dl Est Cr Clr Drug Dosing 77.8 ml/min Est GFR ( Amer) 81.4 Est GFR (Non-Af Amer) 70.3 BUN/Creatinine Ratio 17.7 (10-20) Glucose 129 H (70-99) mg/dl Calcium 8.2 L (8.5-10.1) mg/dl
--- NOTE | 2020-03-01 10:53 | Discharge Summary ---
Date of Service March 01, 2020 Admission HPI Per Admitting Provider History of Present Illness (including history relevant to procedure): This 59-year-old male presents the clinic today for his preoperative history and physical examination. The patient has had issues with his right leg for over 3 years. He underwent back surgery 3 years ago, which helped with some of the excruciating pains he had radiating down his leg. He has been left with some numbness in the anterolateral aspect of the lower leg. However, he has always had some pain in the groin which has progressively worsened over the last 3 years. This affects his ability to lift heavy objects, walk and even kayak. He has tried various treatments including a 1-week course of steroids orally as well as Aleve and Tylenol. Unfortunately, these have failed to relieve his symptoms. He has not had any injections into the hip joint. He says nothing really makes it any better. He denies any current tingling down the leg and does not have any numbness by his groin, only in the lower leg. Past Medical History: Problems: Abscess of back Chronic numbness in the right anterior lower leg since having back surgery Right hip degenerative joint disease Procedure History Procedure Procedure Date Comments L4/5 discectomy Left ACL and MCL reconstruction Left inguinal hernia repair Allergies and Sensitivities: NKA Social history: Patient states that he consumes approximately 2 alcoholic beverages per week. He denies tobacco or illicit drug use. Family history: Noncontributory Current Home Meds: (Last Updated 02/05 14:49) (Tylenol) glucosamine multivitamintrimethoprim (Bactrim DS 800 mg-160 mg oral tablet) 1 tab PO bid drink plenty of fluids Admission Exam Per Admitting Provider Physical Exam: (relevant to the procedure, including heart and lung evaluation) General: Alert and oriented x3 with proper grooming and hygiene Eyes: Pupils are equal and react to light with accommodation. Extraocular movements are intact Throat: Deferred due to COVID-19 precautions Cardiac: Regular rate and rhythm with no murmurs or gallops appreciated Lungs: Clear to auscultation throughout with no wheezing, rales or rhonchi Abdomen: Mildly obese, nondistended, nontender with normal active bowel sounds Back: See skin Extremities: Right hip exam reveals the patient to have a positive Stinchfield test. He has severely limited range of motion with flexion up to 85 degrees, external rotation of 30 degrees, and internal rotation of 5 degrees. Positive impingement-scour tests. Positive CHOCO test. Distally neurovascularly intact including palpable dorsalis pedis and posterior tibial pulses. Neuro: Cranial nerves II through XII are intact with no motor or sensory deficit Skin: Patient has a tiny opening in the central portion of the scar in his lumbar spine with some mild surrounding erythema. Upon compression of the area a thick yellowish substance was expressed. Site was then cleansed with Betadine swabs, and alcohol soaked 4 x 4 and covered with some Band-Aids. Otherwise the skin was normal in appearance. Principal Diagnosis Right hip osteoarthritis Discharge Exam Right hip: Silverlon dressing was clean dry and intact. Patient was able to depict light sensation to touch circumferentially around the dressing. Logroll test and Stinchfield tests are negative. Patient experiences no pain with very light passive internal and external hip rotation. He is able to actively perfor m a straight leg raise test without difficulty. He is able to actively dorsi and plantarflex his foot. Quad strength is 3 out of 5. He is neurovascularly intact in right lower extremity. His peripheral pulses are 2+. His capillary refill is less than 2 seconds. Discharge Data Allergies Allergy/AdvReac Type Severity Reaction Status Date / Time No Known Drug Allergies Allergy Unknown Verified 02/29/20 08:24 Consultations 03/01/20 08:00 Consult Case Management - Discharge Planning Routine Procedures Performed Operation Date: 02/29/20 10:10 Actual Procedures p Right Total Hip Arthroplasty(Right) - Tamir Hartmann MD Hospital Course (1) Status post total hip replacement, right: Patient had an uneventful overnight stay. He did very well with PT and OT this morning. He states that he is ready to be discharged home soon as possible. He plans on using [facility] for in-home therapy for the first 2 weeks postoperatively. Total hip precautions PT/OT Weightbearing as tolerated with walker assistance Abduction pillow use x6 weeks DVT prophylaxis with EDWIN stockings and aspirin Pain control with p.o. medication Keep Silverlon dressing intact Ice with EZ wrap Discharge home today with in-home physical therapy Follow-up at [facility] orthopedics as scheduled in 2 weeks With questions: Call [phone] Total Time Total Time Spent Total Time Spent (In Minutes): 20 minutes Total Time Includes: Examination of the Patient, Discharge Planning and Medication Reconciliation Discharge Plan Discharge Items Patient Disposition: Home - Home Health Services Reason For Visit: Right Hip Osteoarthritis Discharge Diagnosis: Right hip osteoarthritis Activity: As commented below Lifting: None Bathing: Keep incision dry Bathing Comment: May shower tomorrow Sexual Activity: Wait until after follow-up appointment Exercise/Sports: Wait until after follow-up appointment Driving/Machine Use: No driving until cleared by orthorthopedic specialist Weightbearing: Right weightbearing Weightbearing Comment: as tolerated with walker assistance Non-emergency contact: Primary Care Provider Call non-emergency contact if: you have any medication questions, your pain is not controlled, your temperature is above 101.5, your wound has increased drainage and your wound pain has increased Follow-up/Referrals: Dusty Salvador MD [Primary Care Provider] - Diet: Regular Addtl Attending Provider Instructions: Post-operative Instructions Dear Patient and Family/Friends, Before you are discharged from the hospital, it is important to know what to expect when you get home after surgery. To that end, we have created this sheet of discharge instructions which covers many commonly asked questions. Make sure you go through this sheet in its entirety with your nurse before you are discharged. Please note that we will go over the specifics of your surgery and recovery when you return for your first post-operative visit. Sincerely, Dr. Hartmann Medication 1. Aspirin 81 mg: take 1 tab twice daily for 30 days post operatively for blood clot prevention. Please purchase. 2. Oxycodone 5 mg: take 1-2 tabs by mouth every 4-6 hours as needed for pain control. A prescription for this will be sent to your pharmacy. 3. Diclofenac Sodium 75 mg: take 1 tab twice daily for 30 days post operatively for pain and inflammation relief. A prescription for the will be sen to your pharmacy with 1 refill. 4. Extra Strength Tylenol 500 mg: take 2 tabs every 6-8 hours for post oper ative pain relief. Please purchase. Pain Expect to be in a fair amount of pain after surgery. Remember, our goal is not to eliminate your pain, but to make it tolerable. It is a good idea to stay ahead of your pain by taking the medications you were prescribed once you get home. Typically, the pain starts improving 3-7 days after surgery. You should start weaning off the narcotic pain medication (oxycodone, hydrocodone, hydromorphone, morphine) as soon as your pain improves. Please call our office if your pain is not adequately controlled. Ice Ice your operative site at least 5 times a day for 15-30 minutes at a time. Make sure you have a thin cloth between the ice or cooling unit and your skin to prevent wong bite. This is especially important if you received a nerve block. Continue icing your operative site for the first 5-7 days after surgery, then as needed. Diet/Nausea/Vomiting Start by drinking clear liquids and eating crackers. If you can tolerate this, then you may resume your normal diet. If you feel nauseated or vomit, take Zofran/ondansetron (if prescribed). Please call our office if you have intractable nausea or vomiting, or, if after hours, you may go to the Emergency Room for help. Constipation Constipation is a common side effect of narcotic pain medication. If you have not had a bowel movement within 2 days after surgery, we recommend purchasing an over the counter laxative such as Milk of Magnesia, Dulcolax, or Miralax from a local pharmacy, and taking it as instructed. Call our clinic if any questions. Slings and Braces If you were placed in a sling or brace, it must be worn at all times, including sleep. You may remove your sling or brace for physical therapy, home exercises, and showering. The length of time you will be in your brace and range of motion restrictions depends on what surgery you had; these details will be reviewed at your first post-operative appointment. Nerve block The anesthesia team sometimes places a nerve block to help with post-operative pain control. This results in significant numbness and inability to move the extremity. The nerve block usually wears off in 8-12 hours, but sometimes can last up to 24 hours. Please call our office if you are still unable to move your extremity after 24 hours, unless you received a pain pump to take home. Nerve blocks typically wear off quickly, so start taking pain medication as soon as you start feeling soreness near your surgical site. Weight bearing and Range of Motion. Do not bear any weight through your operative extremity immediately after surgery. If you had upper extremity surgery, do not lift anything with that arm. If you are in a knee brace, keep it locked in place until your follow-up. We will discuss your weight bearing, range of motion, and lifting restrictions in detail at your first post-operative appointment. Continuous Passive Motion (CPM) Machine If you were prescribed a CPM machine, it will start after your first post- operative appointment, at which time we will give you instructions on the range of motion settings and duration of treatment Physical therapy You will be given a prescription for physical therapy or occupational therapy at your first post-operative appointment. Typically, patients start therapy within 1 week of surgery Wound care and showering We will inspect your wound at your first post-operative visit, and may do a dressing change at that time. Most patients will be in a water-proof dressing that is removed 14 days after surgery. It is normal to see some dried blood on the dressing. Do not remove your dressing, paper strips or sutures yourself unless you are given permission. Showering is allowed the day after surgery. Do not scrub or remove any dressin gs. The wound should not be submerged underwater (i.e. in a bathtub or pool) until 4 weeks after surgery EDWIN stockings If you were given white stockings, these are to be worn at all times except to shower (on both legs) for the first 2 weeks after surgery. Driving You may not drive while taking narcotic pain medication or while in a cast, splint, sling or brace. You, the patient, need to make the final determination about when you are safe to drive, however, the earliest you may consider driving after surgery is below: Hand/Wrist/Elbow Surgery: 3 days Shoulder Surgery: 2 weeks Hip,/Knee/Ankle Surgery: 4 weeks Fracture repair: 6 weeks Return to Work Your return to work depends on what surgery was done and what type of work you do. Please bring any paperwork your employer needs completed to your first post-operative visit. Also, bring a description of your job duties, as this helps us to understand what risks you may face at work. Travel Avoid long distance travel (greater than 1 hour) in airplanes and cars for the first 6 weeks after surgery. If you must travel, you need to have a Doppler ultrasound done before you travel to rule out a blood clot in your legs. Follow-up You should have a follow-up appointment already scheduled 1-2 days after surgery. If not, please contact our office to make this appointment before you leave the hospital. When to call the office It is normal to have swelling and bruising in the limb that was operated on. This will improve with time. It is also normal to have fevers for the first 2 days after surgery. Reasons you should call your doctor include: Uncontrolled pain; Nausea, vomiting, or constipation that does not improve with medication; Fevers over 101.5, chills, sweats; Drainage or bleeding from the wound; Foul odor; Spreading areas of redness; Any other concerns Pending Studies at Discharge: No Stand-Alone Forms: [facility], Opioid Pain Management Medications and DC Order Prescriptions: New oxycodone 5 mg tablet 5 mg PO Q6H MDD 6 tablets Qty: 30 RF: 0 diclofenac sodium 75 mg tablet,delayed release (DR/EC) 75 mg PO BID 30 Days Qty: 60 RF: 1 Continued acetaminophen [Tylenol 8 Hour] 650 mg tablet extended release 650 mg PO Q12H PRN (Reason: Pain) RF: 0 tramadol 50 mg tablet 50 mg PO BID PRN (Reason: pain) Qty: 30 RF: 0 multivitamin Tablet 1 tab PO QAM RF: 0 Discontinued naproxen sodium [Aleve] 220 mg Capsule 220 mg PO BID PRN (Reason: Pain) RF: 0 Discharge Orders: Discharge Order (Routine); Ordered 02/29/20 Ordered By: Dennis Charles/Other Patient Handouts: DVT Post Op Prevention Admission Data Admit Date/Time: 02/29/20 12:59 Attending Provider: Tamir Hartmann Admit Provider: Tamir Hartmann Primary Care Provider: Dusty Salvador Other Providers: [facility],Home Health Other Interventions: Discharge Summary Assessment (RN) Last Done: 03/01/20 09:23
[2020-03-01] MEDS ORDERED: CeleBREX 200 MG CAP PO SCH (21:00)
== END 2020-03-01 11:33 | disposition home health service (06) | DRG 470 ==
LOC: ASU 08:00 → 3E 08:00 → INTOOBSV 12:59 → OBSVTOIN 12:59
DX: M16.11 Unilateral primary osteoarthritis, right hip